=== PATIENT | female | born 1950 | race Caucasian/White ===

== ENCOUNTER 2023-12-04 16:10 | Outpatient (CLI) | payer MEDICARE, MEDICAID ==
[~2023-12-04] VITALS: Ht 170.2 cm; Wt 106.6 kg
[2023-12-04 16:36] LABS: TOTAL HEMOGLOBIN 15.7 G/dl (12.0-16.0)
[2023-12-04] MEDS: albuterol 2.5 MG/3 ML nebule NEB ONE (17:08)
[2023-12-04 17:12] VITALS: PULSE 75; RESP 16; O2SAT 97
[2023-12-04 17:24] VITALS: PULSE 75; RESP 16
== END 2023-12-04 23:59 | disposition home or self-care (01) ==
LOC: RT 16:10
PROVIDERS: ATTEND Internal Medicine Pulmonary Disease
DX: R94.2 Abnormal results of pulmonary function studies (principal); J45.998 Other asthma
CPT/HCPCS: 85018; 94060; 94727; 94729; 94760